=== PATIENT | female | born 1930 | race African-American/Black ===

== ENCOUNTER 2018-04-14 01:17 | Emergency (ER) | payer OTHER ==
[~2018-04-14] VITALS: Ht 149.9 cm; Wt 50.0 kg
[~2018-04-14 01:17] MED LIST: ALPR-409 PO; AMLO-512 PO; ASCO-360 PO; ASPI81TA87 PO; BENA10TA PO; CALC-719 PO; CHOL200035 PO; FISH1CAP50 PO; LATA2.5D2 OU; LOPE2 PO; MULT-1259 PO; RANI15SY2 PO; [UNRECOGNIZED DRUG - CODE] OU
[2018-04-14] MEDS ORDERED: OMEP20 PO (01:26)
[2018-04-14 01:41] LABS: EOSINOPHILS % (AUTO) 0.5 % (1.0-6.0); HEMATOCRIT 29.9 % (36-46); HEMOGLOBIN 10.2 g/dL (12.0-16.0); LYMPHOCYTES # (AUTO) 1.7 K/uL (1.0-4.8); LYMPHOCYTES % (AUTO) 16.6 % (22.0-44.0); MEAN CORPUSCULAR HEMOGLOBIN 30.6 pg (26.0-34.0); MEAN CORPUSCULAR VOLUME 90 fL (80-100); MONOCYTES % (AUTO) 9.6 % (2.0-9.0); NEUTROPHILS # (AUTO) 7.2 K/uL (1.8-7.7); NEUTROPHILS % (AUTO) 72.3 % (40.0-70.0); PLATELET COUNT (AUTO) 372 K/uL (150-450); RED BLOOD CELL COUNT(AUTO) 3.32 MIL/uL (4.00-5.20); RED CELL DISTRIBUTION WIDTH 12.4 % (11.5-14.5)
[2018-04-14 01:50] LABS: ANION GAP 8 mmol/L (8-16); CALCIUM, TOTAL 9.4 mg/dL (8.8-10.5); CARBON DIOXIDE 29 mmol/L (22-29); CHLORIDE 93 mmol/L (98-107); CREATININE 0.74 mg/dL (0.60-1.30); GLOMERULAR FILTR. RATE CALC > 60 mL/min (>60); GLUCOSE,RANDOM 124 mg/dL (70-110); POTASSIUM 3.5 mmol/L (3.5-5.1); SODIUM SERUM 130 mmol/L (136-145); UREA NITROGEN, BLOOD 12 mg/dL (7-18)
[2018-04-14 01:53] LABS: GLUCOSE,POINT OF CARE 135 MG/DL (70-110)
[2018-04-14 01:56] LABS: ALANINE AMINOTRANSFERASE 8 U/L (12-78); ALBUMIN 2.3 g/dL (3.4-5.0); ALKALINE PHOSPHATASE 78 U/L (46-116); ASPARTATE AMINOTRANSFERASE 18 U/L (15-37); BILIRUBIN,TOTAL 0.3 mg/dL (0.1-1.0); CREATINE KINASE, TOTAL ONLY 43 U/L (26-192); LIPASE 99 U/L (73-393); TOTAL PROTEIN, SERUM 8.8 g/dL (6.4-8.2)
[2018-04-14 02:07] LABS: B-TYPE NATRIURETIC PEPTIDE 91 pg/mL (0-100)
[2018-04-14] MEDS ORDERED: BENA1TAB18 PO (02:21)
[2018-04-14] MEDS ORDERED: CYCL05OE OU (02:21)
[2018-04-14] MEDS ORDERED: ACET-784 PO (02:27)
[2018-04-14] MEDS ORDERED: ASCO500 PO (02:27)
[2018-04-14] MEDS ORDERED: FLAX100031 PO (02:27)
[2018-04-14] MEDS ORDERED: AMLO-512 PO (02:27)
[2018-04-14] MEDS ORDERED: VIT-12 PO (02:27)
[2018-04-14] MEDS ORDERED: CALC-997 PO (02:27)
[2018-04-14] MEDS ORDERED: PROP10DR2 OU (02:27)
[2018-04-14] MEDS ORDERED: XALA2.5OS OS (02:27)
[2018-04-14 03:19] LABS: APPEARANCE,URINE CLEAR (CLEAR); BILIRUBIN,URINE NEGATIVE (NEGATIVE); GLUCOSE, URINE (UA) NEGATIVE (NEGATIVE); KETONES,URINE TRACE mg/dL (NEGATIVE); LEUKOCYTE ESTERASE ,URINE NEGATIVE (NEGATIVE); NITRATE,URINE NEGATIVE (NEGATIVE); OCCULT BLOOD,URINE NEGATIVE (NEGATIVE); PROTEIN,URINE NEGATIVE (NEGATIVE); UROBILINOGEN,URINE 0.2 mg/dL (<=1.0)
[2018-04-14] MEDS ORDERED: SODIUM CHLORIDE 0.9% 1,000 ML IV ONE (03:30)
[2018-04-14] MEDS ORDERED: SODIUM PHOS/SODIUM BIPHOS 133 ML ENEMA PR ONE (03:45)
[2018-04-14] MEDS ORDERED: MAGNESIUM CITRATE 300 ML ORAL SOLUTION PO ONE (04:15)
[2018-04-14 04:16] VITALS: BP 134/65
== END 2018-04-14 04:51 | disposition home or self-care (01) ==
LOC: EMS 01:17
DX: K59.00 Constipation, unspecified (principal); F41.9 Anxiety disorder, unspecified; K21.9 Gastro-esophageal reflux disease without esophagitis; I10 Essential (primary) hypertension; Z90.710 Acquired absence of both cervix and uterus; Z88.0 Allergy status to penicillin; Z79.82 Long term (current) use of aspirin
CPT/HCPCS: 36415; 71045; 80053; 81003; 82550; 82962; 83690; 83880; 84484; 85025; 93005; 99285; J7030

== ENCOUNTER 2018-04-18 03:04 | Emergency (ER) | payer OTHER ==
[~2018-04-18] VITALS: Ht 149.9 cm; Wt 50.0 kg
[~2018-04-18 03:04] MED LIST changes: +ACET-784 PO; -ALPR-409 PO; -ASCO-360 PO; +ASCO500 PO; -BENA10TA PO; +BENA1TAB18 PO; +CALC-997 PO; +CYCL05OE OU; -FISH1CAP50 PO; +FLAX100031 PO; +LATA2.5D2 OP; -LATA2.5D2 OU; -LOPE2 PO; -MULT-1259 PO; +OMEP20 PO; +PROP10DR2 OU; -RANI15SY2 PO; +VIT-12 PO; +XALA2.5OS OS; -[UNRECOGNIZED DRUG - CODE] OU
[2018-04-18 03:18] LABS: GLUCOSE,POINT OF CARE 109 MG/DL (70-110)
[2018-04-18 03:32] LABS: BASOPHILS % (AUTO) 0.9 % (0.0-2.0); EOSINOPHILS % (AUTO) 0.7 % (1.0-6.0); HEMATOCRIT 27.8 % (36-46); HEMOGLOBIN 9.7 g/dL (12.0-16.0); LYMPHOCYTES # (AUTO) 1.2 K/uL (1.0-4.8); LYMPHOCYTES % (AUTO) 16.4 % (22.0-44.0); MEAN CORPUSCULAR HEMOGLOBIN 31.1 pg (26.0-34.0); MEAN CORPUSCULAR HGB CONC 34.8 G/dL (31.0-37.0); MEAN CORPUSCULAR VOLUME 89 fL (80-100); MONOCYTES # (AUTO) 0.9 K/uL (0.1-1.0); MONOCYTES % (AUTO) 12.3 % (2.0-9.0); NEUTROPHILS # (AUTO) 5.2 K/uL (1.8-7.7); NEUTROPHILS % (AUTO) 69.7 % (40.0-70.0); PLATELET COUNT (AUTO) 386 K/uL (150-450); RED BLOOD CELL COUNT(AUTO) 3.12 MIL/uL (4.00-5.20); RED CELL DISTRIBUTION WIDTH 12.6 % (11.5-14.5)
[2018-04-18 03:40] LABS: ANION GAP 8 mmol/L (8-16); CALCIUM, TOTAL 9.2 mg/dL (8.8-10.5); CARBON DIOXIDE 29 mmol/L (22-29); CHLORIDE 90 mmol/L (98-107); CREATININE 0.72 mg/dL (0.60-1.30); GLOMERULAR FILTR. RATE CALC > 60 mL/min (>60); GLUCOSE,RANDOM 113 mg/dL (70-110); POTASSIUM 3.3 mmol/L (3.5-5.1); SODIUM SERUM 127 mmol/L (136-145); UREA NITROGEN, BLOOD 9 mg/dL (7-18)
[2018-04-18 03:45] LABS: ALANINE AMINOTRANSFERASE 15 U/L (12-78); ALBUMIN 2.2 g/dL (3.4-5.0); ALKALINE PHOSPHATASE 80 U/L (46-116); ASPARTATE AMINOTRANSFERASE 22 U/L (15-37); BILIRUBIN,TOTAL 0.3 mg/dL (0.1-1.0); LIPASE 85 U/L (73-393); TOTAL PROTEIN, SERUM 8.6 g/dL (6.4-8.2)
[2018-04-18 03:56] VITALS: BP 135/72
== END 2018-04-18 05:26 | disposition home or self-care (01) ==
LOC: EMS 03:05
DX: K59.00 Constipation, unspecified (principal); F41.9 Anxiety disorder, unspecified; I10 Essential (primary) hypertension; Z90.49 Acquired absence of other specified parts of digestive tract; Z90.89 Acquired absence of other organs; Z88.0 Allergy status to penicillin; Z79.899 Other long term (current) drug therapy
CPT/HCPCS: 74176; 93005

== ENCOUNTER 2018-04-23 11:36 | Emergency (ER) | payer OTHER ==
[~2018-04-23] VITALS: Ht 149.9 cm; Wt 50.0 kg
[~2018-04-23 11:36] MED LIST changes: -CALC-997 PO; -CHOL200035 PO; -CYCL05OE OU; -LATA2.5D2 OP; +LATA2.5D2 OU; -XALA2.5OS OS
[2018-04-23 12:09] LABS: GLUCOSE,POINT OF CARE 110 MG/DL (70-110)
[2018-04-23] MEDS ORDERED: SODIUM CHLORIDE 0.9% 100 ML ONE (12:36)
[2018-04-23] MEDS ORDERED: IOVERSOL 350 MG/ML 100 ML VIAL ONE (12:36)
[2018-04-23 12:43] LABS: EOSINOPHILS % (AUTO) 0.6 % (1.0-6.0); HEMATOCRIT 29.3 % (36-46); LYMPHOCYTES # (AUTO) 1.3 K/uL (1.0-4.8); MEAN CORPUSCULAR HEMOGLOBIN 30.5 pg (26.0-34.0); MEAN CORPUSCULAR HGB CONC 34.1 G/dL (31.0-37.0); MEAN CORPUSCULAR VOLUME 89 fL (80-100); NEUTROPHILS # (AUTO) 6.3 K/uL (1.8-7.7); NEUTROPHILS % (AUTO) 72.4 % (40.0-70.0); PLATELET COUNT (AUTO) 428 K/uL (150-450); RED BLOOD CELL COUNT(AUTO) 3.27 MIL/uL (4.00-5.20); RED CELL DISTRIBUTION WIDTH 12.9 % (11.5-14.5)
[2018-04-23 12:54] LABS: ANION GAP 8 mmol/L (8-16); CALCIUM, TOTAL 9.3 mg/dL (8.8-10.5); CARBON DIOXIDE 31 mmol/L (22-29); CHLORIDE 95 mmol/L (98-107); CREATININE 0.51 mg/dL (0.60-1.30); GLOMERULAR FILTR. RATE CALC > 60 mL/min (>60); GLUCOSE,RANDOM 112 mg/dL (70-110); POTASSIUM 3.5 mmol/L (3.5-5.1); SODIUM SERUM 134 mmol/L (136-145); UREA NITROGEN, BLOOD 5 mg/dL (7-18)
[2018-04-23 12:57] LABS: INR 1.2 (0.9-1.1); PROTHROMBIN TIME 12.2 SEC (9.4-11.6)
[2018-04-23 13:00] LABS: ALANINE AMINOTRANSFERASE 10 U/L (12-78); ALBUMIN 1.9 g/dL (3.4-5.0); ALKALINE PHOSPHATASE 80 U/L (46-116); ASPARTATE AMINOTRANSFERASE 21 U/L (15-37); BILIRUBIN,TOTAL 0.3 mg/dL (0.1-1.0); CREATINE KINASE, TOTAL ONLY 26 U/L (26-192); TOTAL PROTEIN, SERUM 8.4 g/dL (6.4-8.2)
[2018-04-23 13:08] LABS: B-TYPE NATRIURETIC PEPTIDE 233 pg/mL (0-100)
[2018-04-23 14:09] LABS: APPEARANCE,URINE CLEAR (CLEAR); BILIRUBIN,URINE NEGATIVE (NEGATIVE); GLUCOSE, URINE (UA) NEGATIVE (NEGATIVE); KETONES,URINE TRACE mg/dL (NEGATIVE); LEUKOCYTE ESTERASE ,URINE NEGATIVE (NEGATIVE); NITRATE,URINE NEGATIVE (NEGATIVE); OCCULT BLOOD,URINE TRACE (NEGATIVE); PH,URINE 7.5 (5.0-8.0); PROTEIN,URINE NEGATIVE (NEGATIVE)
[2018-04-23 14:25] LABS: BACTERIA,URINE None Seen /HPF (None Seen); RBC,URINE 0-2 /HPF (0-2); WBC,URINE None Seen /HPF (0-5)
[2018-04-23] MEDS ORDERED: ALPR0.255 PO (20:00)
[2018-04-23] MEDS ORDERED: FAMOTIDINE 20 MG TABLET PO ONE (20:45)
[2018-04-23 21:46] VITALS: BP 133/60
== END 2018-04-23 22:52 | disposition home or self-care (01) ==
LOC: EMS 11:37
DX: D64.9 Anemia, unspecified (principal); R62.7 Adult failure to thrive; R26.89 Other abnormalities of gait and mobility; R53.83 Other fatigue; F41.9 Anxiety disorder, unspecified; K21.9 Gastro-esophageal reflux disease without esophagitis; I10 Essential (primary) hypertension; Z90.49 Acquired absence of other specified parts of digestive tract; Z88.0 Allergy status to penicillin; Z79.82 Long term (current) use of aspirin
CPT/HCPCS: 36415; 71045; 74176; 80053; 81001; 82550; 82962; 83880; 84484; 85025; 85610; 85730; 93005; 99285; J7050; Q9967